=== PATIENT | male | born 1965 | race Caucasian/White ===

== ENCOUNTER 2017-09-21 14:33 | Emergency (ER) | payer SELFPAY ==
[~2017-09-21] VITALS: Ht 165.1 cm; Wt 75.6 kg
[2017-09-21 14:38] VITALS: BP 126/76; PULSE 66; RESP 16; TEMP 98.4; O2SAT 97
[2017-09-21] MEDS ORDERED: PENI500T PO (15:22)
[2017-09-21] MEDS ORDERED: TRAM50TA PO (15:22)
--- NOTE | 2017-09-21 15:24 | PD ---
HPI Chief Complaint: Oral / Dental Pain or Problem Time Seen by Provider: 15:13 Travel History International Travel<30 days: No Contact w/Intl Traveler<30days: No Traveled to known affect area: No History of Present Illness HPI This patient complains of dental pain. Located in her right lower jaw. Duration 3 days. Severity is moderate. No fever. PFSH Past Medical History Medical History: Denies Significant Hx Diminished Hearing: No Immunizations Current: Yes Tetanus Vaccination: Unknown Influenza Vaccination: No Past Surgical History Surgical History: No Previous Surgery Social History Alcohol Use: No Tobacco Use: Yes (1 pk) Substance Use: No Allergies-Medications (Allergen,Severity, Reaction): Coded Allergies: No Known Allergies (Unverified , 09/21/17) Reported Meds & Prescriptions Reported Meds & Active Scripts Active Tramadol (Tramadol HCl) 50 Mg Tab 50 Mg PO Q6H PRN Penicillin V Potassium 500 Mg Tab 500 Mg PO Q8H Review of Systems General / Constitutional: No: Fever HENT: No: Headaches Cardiovascular: No: Chest Pain or Discomfort Physical Exam Narrative Psych: Normal mood and affect. Normal insight and judgment. SKIN: Focused skin assessment reveals no rash or ulcers. Skin is warm and dry. Palpation shows no induration or nodules. Oral cavity: Right lower molar shows cavity with some mild surrounding gingival swelling but no abscess. Data Data Last Documented VS Vital Signs Date Time Temp Pulse Resp B/P (MAP) Pulse Ox O2 Delivery O2 Flow Rate FiO2 09/21/17 14:38 98.4 66 16 126/76 (93) 97 MDM Medical Decision Making Medical Screen Exam Complete: Yes Emergency Medical Condition: Yes Medical Record Reviewed: Yes Differential Diagnosis Gingivitis, cavity, abscess Narrative Course I have reviewed the patient's electronic medical record. Antibiotics and pain medicine prescribed. Dental follow-up recommended Diagnosis Primary Impression: Pain, dental Additional Instructions: The patient was advised to follow up with their dentist . The patient was warned about potential sedation for the medications they will receive on prescription. Med/Other Pt SpecificInfo: Prescription(s) given Scripts Tramadol (Tramadol) 50 Mg Tab 50 MG PO Q6H Y for PAIN, #20 TAB 0 Refills Prov: Viktor Rudd MD 09/21/17 Penicillin V Potassium (Penicillin V Potassium) 500 Mg Tab 500 MG PO Q8H for Infection, #20 TAB 0 Refills Prov: Viktor Rudd MD 09/21/17 Disposition: 01 DISCHARGE HOME Condition: Stable Viktor Rudd MD Sep 21, 2017 15:24
== END 2017-09-21 15:35 | disposition home or self-care (01) ==
LOC: PHEFT 14:33
DX: K08.89 Other specified disorders of teeth and supporting structures (principal); F17.210 Nicotine dependence, cigarettes, uncomplicated
CPT/HCPCS: 99283